=== PATIENT | female | born 1965 | race Two or more races ===

== ENCOUNTER 2023-05-18 19:35 | Emergency (ER) | payer OTHER ==
[~2023-05-18] VITALS: Ht 167.6 cm; Wt 99.8 kg
[2023-05-18] MEDS ORDERED: ZESTRIL40 M1 (19:48)
[2023-05-18] MEDS ORDERED: TEGRETOL200 MG PO (19:49)
[2023-05-18 20:34] LABS: HEMATOCRIT 43.2 % (36.0-45.00); HEMOGLOBIN 14.3 g/dL (12.0-15.00); MEAN CELL VOLUME 88.6 fL (80.00-100.00); MEAN CORPUSCULAR HEMOGLOBIN 29.4 pg (27.00-32.0); MEAN CORPUSCULAR HGB CONC 33.2 g/dl (32.0-36.0); PLATELET COUNT 266 K/uL (150-450); RED BLOOD COUNT 4.87 M/uL (4.00-6.00); RED CELL DISTRIBUTION WIDTH 12.9 % (11.5-14.5)
[2023-05-18 20:52] LABS: CALCIUM 9.2 mg/dL (8.5-10.1); CREATININE SERUM 0.95 mg/dL (0.55-1.02); GFR 60.85; POTASSIUM 3.75 mEq/L (3.5-5.1)
== END 2023-05-18 23:47 | disposition home or self-care (01) ==
LOC: ER 19:35
PROVIDERS: General Practice
DX: R13.10 Dysphagia, unspecified (principal)